=== PATIENT | male | born 1965 | race Two or more races ===

== ENCOUNTER 2017-08-15 08:58 | Emergency (ER) | payer SELFPAY ==
[2017-08-15] MEDS ORDERED: Morphine INJ* 4 MG/ML 1 ML CARPUJECT IV ONE (09:20)
[2017-08-15] MEDS ORDERED: NS 0.9% 1000 ML* 1,000 ML IV ONE (09:20)
[2017-08-15 10:07] LABS: ABS Basophils 0 10^3/ul (0-0.2); ABS Eosinophils 0 10^3/ul (0-0.6); ABS Monocytes 0.9 10^3/ul (0-0.8); ABS Neutrophils 7.1 10^3/ul (1.5-7.7); ABS Nucleated RBC 0 10^3/ul; Eosinophil % 0.1 % (0-6); Hematocrit 42 % (42-52); Hemoglobin 14.8 g/dl (14.0-18.0); Mean Corpuscular HGB Conc 35 g/dl (31-36); Mean Corpuscular Hemoglobin 31 pg (27-31); Mean Corpuscular Volume 89 fL (80-94); Mean Platelet Volume 9 um3 (7.4-10.4); Nucleated Red Blood Cells % 0; Platelet Count 221 10^3/ul (150-450); Red Blood Count 4.77 10^6/ul (4.0-5.4); Red Cell Distribution Width 13 % (10.5-15)
[2017-08-15 10:19] LABS: EGFR Non-African American 77.3 (>60)
[2017-08-15 10:40] LABS: Urine Appearance Clear; Urine Blood Negative (Negative); Urine Color Yellow; Urine Ketones Negative (Negative); Urine Protein Negative (Negative); Urine Specific Gravity 1.015 (1.010-1.030); Urine Urobilinogen Negative (Negative)
[2017-08-15] MEDS ORDERED: Iohexol 300* (CONTRAST) 10 ML SDV IV ONE (10:55)
--- NOTE | 2017-08-15 11:58 | RAD ---
CLINICAL HISTORY: Lower abdominal pain COMPARISON: None TECHNIQUE: Multiple contiguous axial CT scans were obtained of the abdomen and pelvis after the administration of intravenous contrast. Coronal and sagittal multiplanar reformations are submitted for review. Oral contrast was administered. Delayed images were obtained through the abdomen and pelvis. FINDINGS: LUNG BASES: The lung bases are clear. LIVER: The liver is normal in shape, size, contour, and attenuation. BILE DUCTS: There is no intrahepatic or extrahepatic biliary dilatation. GALLBLADDER: The gallbladder is normal, without pericholecystic inflammatory change. PANCREAS: The pancreas is normal, without mass or ductal dilatation. SPLEEN: Normal in size and appearance. UPPER GI TRACT: Evaluation of the gastrointestinal tract is limited by incomplete gastric distention. The upper GI tract is unremarkable. SMALL BOWEL AND MESENTERY: There is mucosal thickening with mild distention of the distal ileum to the ileocecal valve COLON: The colon is normal in contour, course, caliber. There is no pericolonic inflammatory change. There is a tubular, vermiform, hollow viscus that is blind ending, and originates from the cecum, consistent with a normal appendix. There is no periappendiceal inflammatory change. This is best seen on axial images 47 through 51. ADRENALS: Normal bilaterally. KIDNEYS: The kidneys are normal in shape, size, contour, and axis. There is no hydronephrosis or nephrolithiasis. BLADDER: The bladder is smooth in contour. PELVIC ORGANS: The prostate gland is mildly enlarged. The ventricles are symmetric. AORTA: The aorta is normal. IVC: Unremarkable LYMPH NODES: There is no lymphadenopathy by size criteria. ABDOMINAL WALL: There is no evidence for abdominal wall hernia. BONES AND SOFT TISSUES: Unremarkable OTHER: None IMPRESSION: THERE IS MUCOSAL THICKENING WITH MILD DISTENTION OF THE DISTAL ILEUM EXTENDING TO THE ILEOCECAL VALVE. THE DIFFERENTIAL INCLUDES AN INFECTIOUS OR NONINFECTIOUS INFLAMMATORY ENTERITIS, INCLUDING INFLAMMATORY BOWEL DISEASE. ENLARGED PROSTATE.
[2017-08-15] MEDS ORDERED: Ketorolac INJ* 30 MG/ML 1 ML VIAL IV PUSH ONE (13:14)
[2017-08-15 13:36] VITALS: BP 120/79
--- NOTE | 2017-08-15 17:55 | ED ---
Ana Maria Dailey Edward, scribed for Jorge May MD on 08/15/17 at 0909 . Abdominal Pain/Male - HPI Summary HPI Summary: 52 y/o male presents to the ED c/o diffuse ABD pain starting yesterday. The pain is mostly in the RLQ and in the lower ABD. Associated sx: vomiting. Denies diarrhea. The pt has not had any episodes before. The pain is rated around 9/10 in severity. No relevant FHx. - History of Current Complaint Chief Complaint: EDAbdPain Stated Complaint: ABD PAIN Time Seen by Provider: 08/15/17 09:07 Hx Obtained From: Patient Onset/Duration: Lasting Hours Timing: Constant Severity Currently: Severe Pain Intensity: 9 Pain Scale Used: 0-10 Numeric Location: Diffuse Aggravating Factor(s): Nothing Alleviating Factor(s): Nothing Associated Signs And Symptoms: Positive: Vomiting. Negative: Diarrhea - Allergies/Home Medications Allergies/Adverse Reactions: Allergies Allergy/AdvReac Type Severity Reaction Status Date / Time No Known Allergies Allergy Verified 08/15/17 09:02 PMH/Surg Hx/FS Hx/Imm Hx Previously Healthy: No Cardiovascular History: Denies: Hx Congestive Heart Failure Opthamlomology History: Denies: Hx Legally Blind Infectious Disease History: No Infectious Disease History: Denies: Traveled Outside the [place] in Last 30 Days - Family History Known Family History: Positive: None - Social History Alcohol Use: Occasionally Hx Substance Use: No Substance Use Type: Reports: None Hx Tobacco Use: No Smoking Status (MU): Never Smoked Tobacco Review of Systems Constitutional: Negative Eyes: Negative ENT: Negative Cardiovascular: Negative Respiratory: Negative Positive: Abdominal Pain, Vomiting. Negative: Diarrhea Genitourinary: Negative Musculoskeletal: Negative Skin: Negative Neurological: Negative Psychological: Normal All Other Systems Reviewed And Are Negative: Yes Physical Exam - Summary Physical Exam Summary: VITAL SIGNS: Reviewed. GENERAL: Patient is a well-developed and nourished male who is lying comfortable in the stretcher. Patient is not in any acute respiratory distress. HEAD AND FACE: No signs of trauma. No ecchymosis, hematomas or skull depressions. No sinus tenderness. EYES: PERRLA, EOMI x 2, No injected conjunctiva, no nystagmus. EARS: Hearing grossly intact. Ear canals and tympanic membranes are within normal limits. MOUTH: Oropharynx within normal limits. NECK: Supple, trachea is midline, no adenopathy, no JVD, no carotid bruit, no c- spine tenderness, neck with full ROM. CHEST: Symmetric, no tenderness at palpation LUNGS: Clear to auscultation bilaterally. No wheezing or crackles. CVS: Regular rate and rhythm, S1 and S2 present, no murmurs or gallops appreciated. ABDOMEN: Soft, diffuse ABD tenderness, mostly in the RLQ. No signs of distention. No rebound no guarding, and no masses palpated. Bowel sounds are normal. EXTREMITIES: FROM in all major joints, no edema, no cyanosis or clubbing. NEURO: Alert and oriented x 3. No acute neurological deficits. Speech is normal and follows commands. SKIN: Dry and warm Triage Information Reviewed: Yes Vital Signs On Initial Exam: Initial Vitals Temp Pulse Resp BP Pulse Ox 98 F 92 16 120/86 96 08/15/17 09:01 08/15/17 09:01 08/15/17 09:01 08/15/17 09:01 08/15/17 09:01 Vital Signs Reviewed: Yes Diagnostics - Vital Signs Vital Signs Temp Pulse Resp BP Pulse Ox 08/15/17 09:01 98 F 92 16 120/86 96 - Laboratory Lab Results: Lab Results 08/15/17 08/15/17 08/15/17 Range/Units 09:36 09:36 09:36 WBC 9.0 (3.5-10.8) 10^3/ul RBC 4.77 (4.0-5.4) 10^6/ul Hgb 14.8 (14.0-18.0) g/dl Hct 42 (42-52) % MCV 89 (80-94) fL MCH 31 (27-31) pg MCHC 35 (31-36) g/dl RDW 13 (10.5-15) % Plt Count 221 (150-450) 10^3/ul MPV 9 (7.4-10.4) um3 Neut % (Auto) 78.7 (38-83) % Lymph % (Auto) 11.0 L (25-47) % [place] % (Auto) 10.1 H (1-9) % Eos % (Auto) 0.1 (0-6) % Baso % (Auto) 0.1 (0-2) % Absolute Neuts (auto) 7.1 (1.5-7.7) 10^3/ul Absolute Lymphs (auto) 1.0 (1.0-4.8) 10^3/ul Absolute Monos (auto) 0.9 H (0-0.8) 10^3/ul Absolute Eos (auto) 0 (0-0.6) 10^3/ul Absolute Basos (auto) 0 (0-0.2) 10^3/ul Absolute Nucleated RBC 0 10^3/ul Nucleated RBC % 0 Sodium 139 (133-145) mmol/L Potassium 3.7 (3.5-5.0) mmol/L Chloride 106 (101-111) mmol/L Carbon Dioxide 25 (22-32) mmol/L Anion Gap 8 (2-11) mmol/L BUN 13 (6-24) mg/dL Creatinine 1.02 (0.67-1.17) mg/dL Est GFR ( Amer) 99.4 (>60) Est GFR (Non-Af Amer) 77.3 (>60) BUN/Creatinine Ratio 12.7 (8-20) Glucose 105 H (70-100) mg/dL Lactic Acid (0.5-2.0) mmol/L Calcium 9.2 (8.6-10.3) mg/dL Magnesium 2.3 (1.9-2.7) mg/dL Total Bilirubin 0.50 (0.2-1.0) mg/dL AST 23 (13-39) U/L ALT 24 (7-52) U/L Alkaline Phosphatase 94 (34-104) U/L Total Creatine Kinase 157 (10-223) U/L C-Reactive Protein 14.73 H (< 5.00) mg/L B-Natriuretic Peptide 8 ( - 100) pg/mL Total Protein 6.6 (6.4-8.9) g/dL Albumin 4.0 (3.2-5.2) g/dL Globulin 2.6 (2-4) g/dL Albumin/Globulin Ratio 1.5 (1-3) Amylase 38 (29-103) U/L Lipase 28 (11.0-82.0) U/L Urine Color Urine Appearance Urine pH (5-9) Ur Specific [place] (1.010-1.030) Urine Protein (Negative) Urine Ketones (Negative) Urine Blood (Negative) Urine Nitrate (Negative) Urine Bilirubin (Negative) Urine Urobilinogen (Negative) Ur Leukocyte Esterase (Negative) Urine Glucose (Negative) 08/15/17 08/15/17 Range/Units 09:36 10:15 WBC (3.5-10.8) 10^3/ul RBC (4.0-5.4) 10^6/ul Hgb (14.0-18.0) g/dl Hct (42-52) % MCV (80-94) fL MCH (27-31) pg MCHC (31-36) g/dl RDW (10.5-15) % Plt Count (150-450) 10^3/ul MPV (7.4-10.4) um3 Neut % (Auto) (38-83) % Lymph % (Auto) (25-47) % [place] % (Auto) (1-9) % Eos % (Auto) (0-6) % Baso % (Auto) (0-2) % Absolute Neuts (auto) (1.5-7.7) 10^3/ul Absolute Lymphs (auto) (1.0-4.8) 10^3/ul Absolute Monos (auto) (0-0.8) 10^3/ul Absolute Eos (auto) (0-0.6) 10^3/ul Absolute Basos (auto) (0-0.2) 10^3/ul Absolute Nucleated RBC 10^3/ul Nucleated RBC % Sodium (133-145) mmol/L Potassium (3.5-5.0) mmol/L Chloride (101-111) mmol/L Carbon Dioxide (22-32) mmol/L Anion Gap (2-11) mmol/L BUN (6-24) mg/dL Creatinine (0.67-1.17) mg/dL Est GFR ( Amer) (>60) Est GFR (Non-Af Amer) (>60) BUN/Creatinine Ratio (8-20) Glucose (70-100) mg/dL Lactic Acid 1.5 (0.5-2.0) mmol/L Calcium (8.6-10.3) mg/dL Magnesium (1.9-2.7) mg/dL Total Bilirubin (0.2-1.0) mg/dL AST (13-39) U/L ALT (7-52) U/L Alkaline Phosphatase (34-104) U/L Total Creatine Kinase (10-223) U/L C-Reactive Protein (< 5.00) mg/L B-Natriuretic Peptide ( - 100) pg/mL Total Protein (6.4-8.9) g/dL Albumin (3.2-5.2) g/dL Globulin (2-4) g/dL Albumin/Globulin Ratio (1-3) Amylase (29-103) U/L Lipase (11.0-82.0) U/L Urine Color Yellow Urine Appearance Clear Urine pH 6.0 (5-9) Ur Specific [place] 1.015 (1.010-1.030) Urine Protein Negative (Negative) Urine Ketones Negative (Negative) Urine Blood Negative (Negative) Urine Nitrate Negative (Negative) Urine Bilirubin Negative (Negative) Urine Urobilinogen Negative (Negative) Ur Leukocyte Esterase Negative (Negative) Urine Glucose 1+(50 mg/dl) H (Negative) Result Diagrams: 08/15/17 09:36 08/15/17 09:36 Lab Statement: Any lab studies that have been ordered have been reviewed, and results considered in the medical decision making process. - CT ABD/PEL CT CT Interpretation: Positive (See Comments) - THERE IS MUCOSAL THICKENING WITH MILD DISTENTION OF THE DISTAL ILEUM EXTENDING TO THE ILEOCECAL VALVE. THE DIFFERENTIAL INCLUDES AN INFECTIOUS OR NONINFECTIOUS INFLAMMATORY ENTERITIS, INCLUDING INFLAMMATORY BOWEL DISEASE. ENLARGED PROSTATE. CT Interpretation Completed By: Radiologist - ED PHYSCIAN REVIEWS AND AGREES - EKG 1 EKG Interpretation: 09:22 - SR @ [address] elevations. Abdominal Pain Fem Course/Dx - Course Assessment/Plan: 52 y/o male presents to the ED c/o diffuse ABD pain starting yesterday. The pain is mostly in the RLQ and in the lower ABD. Associated sx: vomiting. Denies diarrhea. The pt has not had any episodes before. The pain is rated around 9/10 in severity. No relevant FHx. SR @ 09:22 - SR @ [address] elevations. ABD/PEL CT SHOWS THERE IS MUCOSAL THICKENING WITH MILD DISTENTION OF THE DISTAL ILEUM EXTENDING TO THE ILEOCECAL VALVE. THE DIFFERENTIAL INCLUDES AN INFECTIOUS OR NONINFECTIOUS INFLAMMATORY ENTERITIS, INCLUDING INFLAMMATORY BOWEL DISEASE. ENLARGED PROSTATE. Test results are without significant abnormalities except CRP 14. In the ed course the pt was given IV fluids, morphine for pain, and the sx resolved. At this point the pt is asymptomatic with no pain. Pt is able to tolerate po. Therefore I believe the pt has enteritis as stated in the ct. I discussed the test results and findings with pt , and the pt will be instructed to f/u with pcp. The pt is hemodynamically stable, A&Ox3. - Diagnoses Differential Diagnosis/HQI/PQRI: Appendicitis, Bowel Obstruction, Constipation, Diverticulitis, Renal Colic, Testicular Torsion Provider Diagnoses: Enteritis, Abdominal pain Discharge - Discharge Plan Condition: Stable Disposition: HOME Prescriptions: Naproxen [Naprosyn 500 mg] 500 mg PO BID PRN #30 tab PRN Reason: Pain Patient Education Materials: Abdominal Pain (ED), Enteritis (ED) Print Language: MEXICAN Referrals: [facility] – [place], [place] PHYSICIAN REFERRAL [Outside] - 4 Days (PLEASE F/U IN 3-5 DAYS) No Primary Care Phys,NOPCP [Primary Care Provider] - The documentation as recorded by the Ana Maria daniels Edward accurately reflects the service I personally performed and the decisions made by , Jorge May MD.
== END 2017-08-15 13:36 | disposition home or self-care (01) ==
LOC: ED 08:58
DX: K52.9 Noninfective gastroenteritis and colitis, unspecified (principal); R11.10 Vomiting, unspecified; R10.9 Unspecified abdominal pain
CPT/HCPCS: 36415; 74177; 80053; 81003; 82150; 82550; 83605; 83690; 83735; 83880; 85025; 86140; 87040; 93005; 96374; 96375; 99283; J1885; J2270; Q9967